=== PATIENT | female | born 1945 | race Caucasian/White ===

== ENCOUNTER → 2018-08-16 12:48 | Outpatient (CLI) | payer MEDICARE, BC ==
[~2018-08-16 12:48] MED LIST: AMBIEN10 MG PO; BUPROPION XL300 MG PO; CARAFATE1 G PO; CARDIZEM CD360 MG PO; CREON (PANCRELI1 CAP PO; DEXILANT60 MG PO; KLOR-CON M2020 MEQ PO; LASIX20 MG PO; VALIUM5 MG PO
[2018-08-16 13:51] LABS: APPEARANCE HAZY (CLEAR); BILIRUBIN NEGATIVE (NEGATIVE); COLOR YELLOW (YELLOW); GLUCOSE NEGATIVE (NEGATIVE); KETONE NEGATIVE (NEGATIVE); NITRITE NEGATIVE (NEGATIVE); PROTEIN NEGATIVE (NEGATIVE); UROBILINOGEN NORMAL (NORMAL)
[2018-08-16 13:52] LABS: BACTERIA MANY /hpf (NONE SEEN); EPITHELIAL CELLS 0-5 /hpf (0-5); HYALINE CAST RARE /lpf (NONE SEEN); MUCUS <1+ /lpf (NONE SEEN); RED CELLS - URINE 0-5 /hpf (0-5)
== END | disposition home or self-care (01) ==
LOC: D.LABREF 12:48
PROVIDERS: ATTEND Internal Medicine
DX: N39.0 Urinary tract infection, site not specified (principal)